=== PATIENT | female | born 1950 | race Caucasian/White ===

== ENCOUNTER 2017-11-13 09:11 | Emergency (ER) | payer MEDICARE, BC ==
[~2017-11-13] VITALS: Ht 170.2 cm; Wt 85.3 kg
[2017-11-13 09:30] VITALS: BP 144/55
[2017-11-13] MEDS ORDERED: HYDROcodone/APAP 5/325MG 1 TAB TABLET PO ONE (09:30)
[2017-11-13] MEDS ORDERED: HYDR-971 PO ×2 (09:35→10:58)
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
--- NOTE | 2017-11-13 10:36 | RAD ---
CT of the chest without contrast, 11/13/2017: HISTORY: Fall, chest pain, difficulty breathing Noncontrast scans were obtained as requested. There is mild calcific plaquing of the thoracic aorta and its branches including the coronary arteries. The aorta is not dilated. Small mediastinal lymph nodes are seen without evidence of pathologic enlargement. Extensive emphysematous changes are present in the lungs. There are streaky bilateral apical pleural-parenchymal opacities probably representing scars. A prominent elongated opacity in the right upper chest is partially calcified. Additional linear opacities in both lungs are probably scars. There may be a component of linear atelectasis in the right base. No pneumothorax or hemopneumothorax is identified. There are fractures of the right fourth, fifth and sixth ribs. There is minimal chest wall emphysema near these fracture sites. The visualized portions of the liver and spleen in the upper abdomen are unremarkable. IMPRESSION: 1. Acute fractures of the lateral aspects of the right fourth, fifth and sixth ribs with minimal adjacent chest wall emphysema. 2. Severe bilateral pulmonary emphysema with pleural-parenchymal opacities compatible scarring. 3. Minimal right basilar atelectasis. 4. No significant hemothorax or pneumothorax. 5. Coronary artery calcifications. PQRS Compliance Statement: One or more of the following individualized dose reduction techniques were utilized for this examination: 1. Automated exposure control 2. Adjustment of the mA and/or kV according to patient size 3. Use of iterative reconstruction technique Electronically signed by: Eder Uriarte MD (11/13/2017 10:33 AM) [facility]
== END 2017-11-13 11:10 | disposition home or self-care (01) ==
LOC: ER 09:11
DX: S22.41XA Multiple fractures of ribs, right side, initial encounter for closed fracture (principal); J43.9 Emphysema, unspecified; J98.11 Atelectasis; I25.10 Atherosclerotic heart disease of native coronary artery without angina pectoris; W18.09XA Striking against other object with subsequent fall, initial encounter; Y93.89 Activity, other specified; Y92.89 Other specified places as the place of occurrence of the external cause; Y99.8 Other external cause status
CPT/HCPCS: 71250; 99284; G0238

== ENCOUNTER → 2017-12-14 | Outpatient (CLI) | payer MEDICARE, BC ==
[~2017-12-14] MED LIST: HYDR-971 PO
--- NOTE | 2017-12-14 09:59 | RAD ---
Chest, 2 views, 12/14/2017: HISTORY: Cough The heart size is normal. There are emphysematous changes in the lungs with bullae in the upper lobes and hyperexpansion. There are streaky parenchymal opacities, particularly in the right upper lobe, probably due to scarring. No acute pulmonary consolidation is seen. There is no evidence of pleural fluid. IMPRESSION: 1. Emphysema with parenchymal scarring. 2. More prominent streaky opacities in the right upper lobe and apex probably represent additional scarring. Radiographic follow-up or CT scanning with comparison to the 11/13/2017 exam is suggested to confirm stability. Electronically signed by: Eder Uriarte MD (12/14/2017 9:56 AM) [facility]
== END | disposition home or self-care (01) ==
LOC: DXRAD 09:27
PROVIDERS: ATTEND Physician Assistant Medical
DX: J43.9 Emphysema, unspecified (principal); I25.10 Atherosclerotic heart disease of native coronary artery without angina pectoris
CPT/HCPCS: 71046